=== PATIENT | female | born 1995 | race Caucasian/White ===

== ENCOUNTER 2022-02-19 09:25 | Day surgery (SDC) | payer OTHER ==
[2022-02-18 11:45] VITALS: BMI 25.0
[~2022-02-19 09:25] MED LIST: LACTATED RINGERS 1,000 ML IV SCH; LIDOCAINE 1% (10MG/ML) FOR IV START INTRADERMA PRN
[2022-02-19 10:34] VITALS: TEMP 98.7
[2022-02-19] MEDS ORDERED: LIDOCAINE 2% INJ 20 MG/ML (2 ML VIAL) ONE (11:05)
[2022-02-19] MEDS ORDERED: PROPOFOL 10 MG/ML 20 ML VIAL IV ONE (11:05)
--- NOTE | 2022-02-19 11:14 | P.PCN ---
Date of Procedure: 02/19/22 Procedure(s) Performed: BRIEF HISTORY: Patient is a 26-year-old, pleasant, female scheduled for an upper endoscopy as a part of evaluation of epigastric and left upper quadrant abdominal pain on and off for the last 6 months duration. Prilosec 20 mg daily for a month with no. PROCEDURE PERFORMED: Esophagogastroduodenoscopy with biopsy. PREOPERATIVE DIAGNOSIS: Epigastric and left upper quadrant abdominal pain of 6 months duration. IV sedation per anesthesia. PROCEDURE: After informed consent was obtained, the patient was brought into the endoscopy unit. IV sedation was administered by Anesthesia under continuous monitoring. Initially the Olympus GIF-140 video endoscope was inserted into the mouth. Esophagus intubated without any difficulty. It was gradually advanced into the stomach and duodenum and carefully examined. The bulb and the second part of the duodenum appeared normal. Biopsies were done from the duodenum to rule out celiac disease The scope at this time was withdrawn to the stomach, adequately insufflated with air, and upon careful examination, mucosa of the antrum and mild gastritis and biopsies were done from this area. The, body, cardia and the fundus appeared normal. The scope was then withdrawn into the esophagus. The GE junction was located at 39 cm from the incisors. The esophagus appeared normal. There were no erosions or ulcerations seen and no biopsies were done from the distal esophagus and the patient tolerated the procedure well. IMPRESSION: 1. Patchy areas of erythema in the antrum consistent with gastritis status post. 2. No evidence of esophagitis or peptic ulcer. RECOMMENDATIONS: The findings of this examination were discussed with the patient as well as her family. She was advised to follow with the biopsy results. In the meantime I suggested that she try [id number] Pepcid 20 mg twice daily and follow antireflux measures..
[2022-02-19 11:19] VITALS: RESP 16
[2022-02-19 11:30] VITALS: BP 107/72; PULSE 69
== END 2022-02-19 12:07 | disposition home or self-care (01) ==
LOC: ORWHC2ENDO 09:25
PROVIDERS: ATTEND Internal Medicine Gastroenterology
DX: K29.50 Unspecified chronic gastritis without bleeding (principal); K29.80 Duodenitis without bleeding; F17.210 Nicotine dependence, cigarettes, uncomplicated; F41.9 Anxiety disorder, unspecified; Z79.899 Other long term (current) drug therapy; Z90.49 Acquired absence of other specified parts of digestive tract
CPT/HCPCS: 81025; 88305; 43239; J2704; J2001

== ENCOUNTER 2023-06-17 00:13 | Emergency (ER) | payer OTHER ==
[2023-06-17] MEDS ORDERED: LIDOCAINE 1% INJ 10MG/ML (20 ML MDV) SQ ONE (02:01)
--- NOTE | 2023-06-17 02:03 | ED ---
General Adult HPI - General Chief complaint: Dental/Oral Stated complaint: Mouth Pain Time Seen by Provider: 06/17/23 01:32 Source: family, RN notes reviewed Mode of arrival: ambulatory Limitations: no limitations - History of Present Illness Initial comments: 28-year-old female with no significant past medical history presents the emergency department with a chief complaint of left-sided facial pain. Patient reports she was seen by her oral surgeon approximately 2 days ago who told her she had a dental infection. She is provided Augmentin. She has only taken 4 doses of this. She reports worsening facial pain and swelling. She reports some drooling. She denies any known fevers, chills, fatigue, shortness of breath, dyspnea, sore throat. Patient reports a current tobacco product use. - Related Data Home Medications Medication Instructions Recorded Confirmed Multivit-Min/Folic Acid/Biotin 1 tab PO DAILY 02/18/22 02/19/22 [Hair, Skin and Nails Softgel] busPIRone HCL 10 mg PO BID 02/18/22 02/19/22 Allergies Allergy/AdvReac Type Severity Reaction Status Date / Time No Known Allergies Allergy Verified 06/17/23 00:35 Review of Systems ROS Statement: Those systems with pertinent positive or pertinent negative responses have been documented in the HPI. ROS Other: All systems not noted in ROS Statement are negative. Past Medical History Additional Past Medical History / Comment(s): having abdominal pain when drinking liquids other than water, no abdominal pain with food History of Any Multi-Drug Resistant Organisms: None Reported Past Surgical History: Cholecystectomy, Tubal Ligation, Uterine Ablation Past Anesthesia/Blood Transfusion Reactions: No Reported Reaction Past Psychological History: Anxiety, Depression Smoking Status: Current every day smoker Past Alcohol Use History: Occasional Past Drug Use History: Marijuana - Past Family History Mother Family Medical History: No Reported History General Exam - General Exam Comments Initial Comments: General: Alert, in no acute distress Head: atraumatic normocephalic. Eyes PERRL, EOMI intact, mucous membranes moist, left lower jaw with mild swelling. Dental abscess present at tooth 18 Respiratory: Lungs clear to auscultation bilaterally Cardiovascular: Heart rate regular rate and rhythm Abdominal: Soft without guarding or rebound Extremities: Normal inspection with full range of motion and normal capillary refill Neuroogic: alert and oriented 3, CN II-XII intact, able to ambulate with steady gait Skin: warm dry and intact with normal color Limitations: no limitations Course Vital Signs 06/17/23 06/17/23 00:33 03:18 Temperature 98 F 97.9 F Pulse Rate 92 78 Respiratory 18 16 Rate Blood Pressure 124/93 136/86 O2 Sat by Pulse 98 98 Oximetry Procedures - Incision & Drainage Consent Obtained: verbal consent Site: other (Dental abscess) Anesthetic Used: lidocaine 1% Amount (mLs): 1 I&D Cleaning Method: Chloroprep Sterile Field Used?: No Scalpel Used: #11 Needle Aspiration Performed?: Yes Irrigation Performed?: Yes I&D Drainage Obtained: Pus, Blood Culture Obtained?: No Complications: pain, bleeding, nerve injury Patient Tolerated Procedure: well, no complications Medical Decision Making - Medical Decision Making Was pt. sent in by a medical professional or institution (Dr. PA, TOILET ATTENDANT, urgent care, hospital, or snf...) When possible be specific @ -[No] Did you speak to anyone other than the patient for history (EMS, parent, family, police, friend...)? What history was obtained from this source @ -Mother Did you review nursing and triage notes (agree or disagree)? Why? @ -[I reviewed and agree with nursing and triage notes] Were old charts reviewed (outside hosp., previous admission, EMS record, old EKG, old radiological studies, urgent care reports/EKG's, snf records)? Report findings @ -[No old charts were reviewed] Differential Diagnosis (chest pain, altered mental status, abdominal pain women, abdominal pain men, vaginal bleeding, weakness, fever, dyspnea, syncope, headache, dizziness, GI bleed, back pain, seizure, CVA, palpatations, mental health, musculoskeletal)? @ -[not applicable] EKG interpreted by me (3pts min.). @ -[As above] X-rays interpreted by me (1pt min.). @ -[None done] CT interpreted by me (1pt min.). @ -[None done] U/S interpreted by me (1pt. min.). @ -[None done] What testing was considered but not performed or refused? (CT, X-rays, U/S, labs)? Why? @ -Imaging and lab work work considered however patient denies any systemic symptoms and is a-febrile during the course of the ED What meds were considered but not given or refused? Why? @ -[None] Did you discuss the management of the patient with other professionals (professionals i.e. , PA, TOILET ATTENDANT, lab, RT, psych nurse, protective services social worker, automatic trimming sewer, teacher, operations officer, case reviewer)? Give summary @ -[No] Was smoking cessation discussed for >3mins.? @ -[No] Was critical care preformed (if so, how long)? @ -[No] Were there social determinants of health that impacted care today? How? (Homelessness, low income, unemployed, alcoholism, drug addiction, transportation, low edu. Level, literacy, decrease access to med. care, senior living, rehab)? @ -[No] Was there de-escalation of care discussed even if they declined (Discuss DNR or withdrawal of care, Hospice)? DNR status @ -[No] What co-morbidities impacted this encounter? (DM, HTN, Smoking, COPD, CAD, Cancer, CVA, ARF, Chemo, Hep., AIDS, mental health diagnosis, sleep apnea, morbid obesity)? @ -[None] Was patient admitted / discharged? Hospital course, mention meds given and route, prescriptions, significant lab abnormalities, going to OR and other pertinent info. @ -Discharged. This is a pleasant 28-year-old female who presents the emergency department with a chief complaint of dental pain. Patient was thorough history and physical exam. Performed. Dental abscess at tooth 18. Patient had incision and drainage procedure performed with of purulent discharge. Patient was instructed to continue Augmentin prescription. Strict return precautions were discussed. Patient discharged in stable condition. Case discussed with WIN Velasquez who agrees with plan of care Undiagnosed new problem with uncertain prognosis? @ -[No] Drug Therapy requiring intensive monitoring for toxicity (Heparin, Nitro, Insulin, Cardizem)? @ -[No] Were any procedures done? @ -[No] Diagnosis/symptom? @ -Dental Abscess - Dental Caries Acute, or Chronic, or Acute on Chronic? @ -Acute Uncomplicated (without systemic symptoms) or Complicated (systemic symptoms)? @ -Uncomplicated Side effects of treatment? @ -[No] Exacerbation, Progression, or Severe Exacerbation? @ -[No] Poses a threat to life or bodily function? How? (Chest pain, [place], [place], pneumonia, PE, COPD, DKA, ARF, appy, cholecystitis, CVA, Diverticulitis, Homicidal, Suicidal, threat to staff... and all critical care pts) @ -Low likelihood Disposition Clinical Impression: Dental caries, Toothache, Dental abscess Disposition: HOME SELF-CARE Condition: Stable Instructions (If sedation given, give patient instructions): Dental Abscess (ED), Toothache (ED) Additional Instructions: Please finish course of Augmentin as prescribed Please return to the nearest emergency department for worsening pain or fever develops Is patient prescribed a controlled substance at d/c from ED?: No Referrals: Laura Desai MD [Primary Care Provider] - 1-2 days Time of Disposition: 02:53
[2023-06-17] MEDS ORDERED: KETOROLAC 15 MG/ML 1 ML VIAL IM STA (02:05)
[2023-06-17] MEDS ORDERED: ACET/COD 300 MG/30 MG STARTER PACK 6 TAB BTL PO STA (02:53)
[2023-06-17 03:19] VITALS: BP 136/86; PULSE 78; RESP 16; TEMP 97.9
== END 2023-06-17 03:18 | disposition home or self-care (01) ==
LOC: EC 00:13
DX: K02.9 Dental caries, unspecified (principal); K04.7 Periapical abscess without sinus; F41.9 Anxiety disorder, unspecified; F32.A Depression, unspecified; F17.200 Nicotine dependence, unspecified, uncomplicated; F12.90 Cannabis use, unspecified, uncomplicated; Z79.899 Other long term (current) drug therapy
CPT/HCPCS: 99282; 41800; 96372; J2001; J1885